=== PATIENT | female | born 1980 | race Caucasian/White ===

== ENCOUNTER 2021-07-08 19:25 | Emergency (ER) | payer OTHER ==
[2021-07-08] MEDS ORDERED: Lidocaine 1% (PF) 30 ML VIAL ONE (20:13)
[2021-07-08] MEDS ORDERED: Ondansetron ODT 4 MG TAB ONE (20:13)
[2021-07-08] MEDS ORDERED: Bacitracin 1 PK ONE (21:16)
[2021-07-08] MEDS ORDERED: traMADol HCl 50 MG TAB ONE (21:34)
== END 2021-07-08 21:40 | disposition home or self-care (01) ==
LOC: MADERS 19:25
DX: S61.211A Laceration without foreign body of left index finger without damage to nail, initial encounter (principal); I10 Essential (primary) hypertension; W26.0XXA Contact with knife, initial encounter
CPT/HCPCS: 12001; J2001; Q0162